=== PATIENT | female | born 1985 | race American Indian/Alaskan Native ===

== ENCOUNTER 2021-06-08 23:50 | Emergency (ER) | payer BC ==
[2021-06-09] MEDS ORDERED: ONDANSETRON 4 MG/2 ML INJ IV ONE ×2 (00:31→03:55)
[2021-06-09] MEDS ORDERED: fentaNYL 100 MCG/2 ML INJ IV ONE (00:31)
[2021-06-09] MEDS ORDERED: propofoL 200 MG/20 ML VIAL IV ONE (00:41)
[2021-06-09] MEDS ORDERED: KETAMINE 500 MG/5 ML VIAL MDV IV ONE (00:41)
--- NOTE | 2021-06-09 01:18 | Emergency Department Report ---
ED Extremity Problem HPI - General Chief complaint: Extremity Injury, Lower Stated complaint: RT KNEE INJURY/PAIN Time Seen by Provider: 06/09/21 00:28 Source: patient Mode of arrival: Ambulatory Limitations: No Limitations - History of Present Illness Initial comments: 36-year-old female with no significant past medical history presents to the hospital complain of right knee pain and deformity status post fall. Patient is wearing heels. Patient did have wine and food prior to arrival. Pain is a 10/10 pain which is constant, worse with palpation and unable to limited positive deformity and swelling noted. Denies previous injury to right knee. History of tubal ligation with no adverse reaction to anesthesia Severity scale (0 -10): 9 - Related Data Previous Rx's Medication Instructions Recorded Last Taken Type Ibuprofen [Motrin] 800 mg PO Q8HR PRN #20 tablet 06/09/21 Unknown Rx traMADoL [Ultram 50 MG tab] 50 mg PO Q6HR PRN #15 tablet 06/09/21 Unknown Rx Allergies Allergy/AdvReac Type Severity Reaction Status Date / Time No Known Allergies Allergy Verified 06/09/21 00:43 ED Review of Systems ROS: Stated complaint: RT KNEE INJURY/PAIN Other details as noted in HPI Comment: All other systems reviewed and negative ED Past Medical Hx - Past Medical History Previous Medical History?: No - Surgical History Past Surgical History?: No - Medications Home Medications: Home Medications Medication Instructions Recorded Confirmed Last Taken Type Ibuprofen [Motrin] 800 mg PO Q8HR PRN #20 tablet 06/09/21 Unknown Rx traMADoL [Ultram 50 MG tab] 50 mg PO Q6HR PRN #15 tablet 06/09/21 Unknown Rx ED Physical Exam - General Limitations: No Limitations - Other Other exam information: General: No acute distress Head: Atraumatic Eyes: normal appearance ENT: Moist mucous membranes Neck: Normal appearance, no midline tenderness Chest: Clear to auscultation bilaterally CV: Regular rate and rhythm Abdomen: Soft, normal bowel sounds, nontender, nondistended, no rebound or guarding Back: Normal inspection Extremity: Right knee pain, swelling, and deformity. 2+ DP pulse Neuro: Alert O x 3, no facial asymmetry, speech clear, no gross motor sensory deficit Psych: Appropriate behavior Skin: No rash ED Course Vital Signs 06/09/21 06/09/21 06/09/21 00:06 00:45 00:58 Temperature 98.2 F Pulse Rate 67 65 Respiratory 16 18 18 Rate Blood Pressure 123/76 Blood Pressure 118/76 [Left] O2 Sat by Pulse 97 99 Oximetry 06/09/21 06/09/21 06/09/21 01:01 01:15 01:31 Temperature Pulse Rate 66 72 69 Respiratory 18 22 30 H Rate Blood Pressure 123/76 115/69 130/80 Blood Pressure [Left] O2 Sat by Pulse 100 100 100 Oximetry 06/09/21 06/09/21 06/09/21 01:45 01:58 02:01 Temperature Pulse Rate 76 68 Respiratory 15 22 27 H Rate Blood Pressure 132/75 128/72 Blood Pressure [Left] O2 Sat by Pulse 100 100 Oximetry 06/09/21 02:15 Temperature Pulse Rate 90 Respiratory 31 H Rate Blood Pressure 147/104 Blood Pressure [Left] O2 Sat by Pulse 100 Oximetry - Reevaluation(s) Reevaluation #1: 06/09/21 02:24 Patient now awake after conscious sedation and reports great improvement in her pain - Moderate Sedation Indications: fracture/dislocation redu ASA Class: I Mallampati Airway Score: 2 Time of Last PO Intake: 23:30 Preparation: lab nurse applied, pulse oximeter, capnometry used, supplemental O2 applied, reversal agents at bedside, suction/airway equipment at bedside, IV secured Fentanyl Dose: 50 Ketamine: IV Ketamine Dose: 75 IV Propofol Dose (mgs): 35 Complications: none Interventions: oxygen applied Patient Tolerated Procedure: well Additional Comments: Start time 2:08 AM, procedure end time 2:13 AM, moderate sedation end time (return to baseline mental status) 2:23 AM - Orthopedic Joint Reduction Joint #1 Consent Obtained: written consent Time Out Performed: Yes Side: right Joint Reduction Location: knee/patella Analgesia: moderate sedation Technique Used: direct manipulation Post-Reduction Neuro Exam: intact Post-Reduction Vascular Exam: intact Post Reduction X-Ray Obtained: Yes Post Reduction X-Ray Results: reduced Splint Applied: Yes Patient Tolerated Procedure: well - Orthopedic Splinting/Casting Injury #1 Side: right Lower Extremity Injury Location: knee Lower Extremity Immobilizer: knee immobilizer Other Orthopedic Equipment: crutches ED Medical Decision Making - Radiology Data Radiology results: report reviewed Right knee 2 views INDICATION: Fall FINDINGS: There is lateral dislocation of the patella at the patellofemoral joint. Diffuse soft tissue swelling throughout the knee. No displaced fracture is definitely seen. MRI could be performed for further evaluation of the patellar retinaculum and ligamentous structures within the knee. Right knee post reduction FINDINGS: Since prior examination there is been interval improvement in alignment at the patellofemoral joint. Distal femur and proximal tibia and fibula appear intact. Diffuse soft tissue swelling anteriorly. - Medical Decision Making 36-year-old female presents to the hospital with right patella dislocation. Successful reduction of patella after conscious sedation. No adverse reaction noted in the ED. Patient at baseline at time of discharge. Right knee immobilizer placed after reduction and patient is was provided crutches with teaching. Outpatient orthopedic follow-up provided Critical Care Time: No Critical care attestation.: If time is entered above; I have spent that time in minutes in the direct care of this critically ill patient, excluding procedure time. ED Disposition Clinical Impression: Dislocation of right patella Disposition: 01 HOME / SELF CARE / HOMELESS Is pt being admited?: No Does the pt Need Aspirin: No Condition: Stable Instructions: Patellar Dislocation, Moderate Conscious Sedation, Adult, Care After Additional Instructions: Take the medication as prescribed. Follow-up with the orthopedic doctor provided with orthopedic doctor of your choice. Return if symptoms worsen as indicated by your discharge instructions. Prescriptions: Ibuprofen [Motrin] 800 mg PO Q8HR PRN #20 tablet PRN Reason: Pain , Severe (7-10) traMADoL [Ultram 50 MG tab] 50 mg PO Q6HR PRN #15 tablet PRN Reason: Pain Referrals: RAMIRO CARSON MD [Staff Physician] - 3-5 Days (Orthopedic doctor) Time of Disposition: 03:09
--- NOTE | 2021-06-09 01:48 | XRay Report ---
Right knee 2 views INDICATION: Fall FINDINGS: There is lateral dislocation of the patella at the patellofemoral joint. Diffuse soft tissu e swelling throughout the knee. No displaced fracture is definitely seen. MRI could be performed for further evaluation of the patellar retinaculum and ligamentous structures within the knee. Signer Name: Washington Stockton MD Signed: 06/09/2021 1:43 AM Workstation Name: [id number]
[2021-06-09] MEDS ORDERED: KETOROLAC 30 MG/1 ML INJ IV ONE (02:02)
--- NOTE | 2021-06-09 02:49 | XRay Report ---
Right knee post reduction FINDINGS: Since prior examination there is been interval improvement in alignment at the patellofemor al joint. Distal femur and proximal tibia and fibula appear intact. Diffuse soft tissue swelling ante riorly. Signer Name: Washington Stockton MD Signed: 06/09/2021 2:45 AM Workstation Name: [id number]
[2021-06-09] MEDS ORDERED: ONDANSETRON 4 MG/2 ML INJ ONE (03:54)
[2021-06-09 05:18] VITALS: BP 136/77
== END 2021-06-09 04:00 | disposition home or self-care (01) ==
LOC: ED 23:50
DX: S83.094A Other dislocation of right patella, initial encounter (principal); Z79.899 Other long term (current) drug therapy; W18.39XA Other fall on same level, initial encounter; Y93.89 Activity, other specified; Y92.89 Other specified places as the place of occurrence of the external cause; Y99.8 Other external cause status
CPT/HCPCS: 27560; 73560; 96374; 96375; 96376; 99283; J1885; J2405; J2704; J3010